=== PATIENT | female | born 2000 | race Asian ===

== ENCOUNTER 2018-01-21 20:50 | Outpatient (CLI) | payer OTHER | END 2018-01-21 20:58 | disposition short-term general hospital (02) | LOC: AMB 20:50 | DX: R51 Headache (principal); R41.82 Altered mental status, unspecified; V49.88XA Car occupant (driver) (passenger) injured in other specified transport accidents, initial encounter; Y92.488 Other paved roadways as the place of occurrence of the external cause | CPT/HCPCS: A0425; A0427 ==

== ENCOUNTER 2018-01-21 21:04 | Emergency (ER) | payer OTHER ==
[~2018-01-21] VITALS: Ht 167.6 cm; Wt 67.1 kg
== END 2018-01-21 23:12 | disposition home or self-care (01) ==
LOC: ED 21:04
DX: R51 Headache (principal); V49.3XXA Car occupant (driver) (passenger) injured in unspecified nontraffic accident, initial encounter
CPT/HCPCS: 99282